=== PATIENT | female | born 1995 | race Caucasian/White ===

== ENCOUNTER 2021-09-13 23:11 | Emergency (ER) | payer SELFPAY | END 2021-09-14 04:52 | disposition left against medical advice (07) | LOC: JD.ED 23:11 | DX: J40 Bronchitis, not specified as acute or chronic (principal); Z20.822 Contact with and (suspected) exposure to COVID-19; F17.210 Nicotine dependence, cigarettes, uncomplicated; Z88.0 Allergy status to penicillin; Z91.040 Latex allergy status | CPT/HCPCS: 71046; 71046-26; 99283; 99283-25; U0002 ==